=== PATIENT | female | born 1950 | race Caucasian/White ===

== ENCOUNTER 2017-05-18 01:30 | Emergency (ER) | payer OTHER ==
[2017-05-18 02:03] LABS: ADD MAN DIFF? NO
[2017-05-18 02:06] LABS: BASO # 0.1 x10^3/uL (0.0-0.2); BASO % 1 % (0-3); EOS # 0.2 x10^3/uL (0.0-0.7); EOS % 3 % (0-3); HEMATOCRIT 43.5 % (36.0-47.0); HEMOGLOBIN 14.4 g/dL (12.0-15.5); LYMPH # 4.6 x10^3/uL (1.0-4.8); LYMPH % 47 % (24-48); MEAN CORPUSCULAR HEMOGLOBIN 32 pg (25-35); MEAN CORPUSCULAR HGB CONC 33 g/dL (31-37); MEAN CORPUSCULAR VOLUME 95 fL (79-100); MONO # 0.9 x10^3/uL (0.0-1.1); MONO % 9 % (0-9); NEUT % 41 % (31-73); PLATELET COUNT 268 x10^3/uL (140-400); RED BLOOD COUNT 4.56 x10^6/uL (3.50-5.40); RED CELL DISTRIBUTION WIDTH 13.8 % (11.5-14.5); WHITE BLOOD COUNT 9.8 x10^3/uL (4.0-11.0)
[2017-05-18 02:40] LABS: D-DIMER 0.43 ug/mlFEU (0.00-0.50)
[2017-05-18 02:48] LABS: ANION GAP 14 (6-14); BLOOD UREA NITROGEN 18 mg/dL (7-20); CALCIUM 9.2 mg/dL (8.5-10.1); CARBON DIOXIDE 25 mmol/L (21-32); CHLORIDE 103 mmol/L (98-107); CREATININE 0.9 mg/dL (0.6-1.0); GFR 62.8; GLUCOSE 141 mg/dL (70-99); SODIUM 142 mmol/L (136-145)
[2017-05-18 02:49] LABS: POTASSIUM 2.9 mmol/L (3.5-5.1)
[2017-05-18 02:54] LABS: TROPONINI < 0.017 ng/mL (0.000-0.055)
[2017-05-18] MEDS: IV NORMAL SALINE 500ML BAG 500 ML IV (02:55)
[2017-05-18] MEDS: POTASSIUM CHLORIDE 20 MEQ TABLET.ER. PO (03:01)
[2017-05-18 07:13] LABS: TROPONIN BY ISTAT 0.02 ng/ml (<0.08)
== END 2017-05-18 06:04 | disposition home or self-care (01) ==
LOC: ER 01:30
DX: R06.00 Dyspnea, unspecified (principal); E87.6 Hypokalemia; Z88.1 Allergy status to other antibiotic agents; Z88.5 Allergy status to narcotic agent
CPT/HCPCS: 36415; 71045; 80048; 84484; 85025; 85379; 93005; 96361; 96374; 99285-25; J2060; J7040

== ENCOUNTER → 2019-07-23 | Outpatient (CLI) | payer MEDICARE ==
[2017-05-18 05:47] VITALS: BP 144/72
[~2019-07-23] MED LIST: POTA20TA4 PO
--- NOTE | 2019-07-24 09:27 | KCIC ---
MR of the left shoulder HISTORY: Left shoulder pain for one year. TECHNIQUE: Routine multiplanar sequences are obtained. FINDINGS: The acromioclavicular joint is mildly degenerative. Very deep linear tear through the bursal layer of the supraspinatus tendon at the footplate measures about 1 cm AP diameter. This measures at least 90 percent across. This may actually be full-thickness, although there may be a very thin layer of articular surface tissue deep to the defect. No evidence of retraction. No measurable subscapularis tendon tear. Trace subdeltoid bursal effusion. No significant glenohumeral joint effusion. No evidence of labral tear or para labral cyst. The biceps tendon is intact. No acute fracture. No aggressive bone destruction. No acute soft tissue abnormality. IMPRESSION: Linear very deep bursal surface tear of the supraspinatus tendon footprint, about 1 cm AP diameter, at least 90 percent across. Possibly 100 percent depth, but no evidence of retraction. Electronically signed by: Karson Elizabeth MD (07/24/2019 9:24 AM) [id number]
== END ==
LOC: KCIC MRI 17:10
PROVIDERS: ATTEND Orthopaedic Surgery
DX: M75.122 Complete rotator cuff tear or rupture of left shoulder, not specified as traumatic (principal)
CPT/HCPCS: 73221